=== PATIENT | male | born 1960 | race Caucasian/White ===

== ENCOUNTER 2023-06-15 20:15 | Emergency (ER) | payer SELFPAY ==
[~2023-06-15] VITALS: Ht 190.5 cm; Wt 81.4 kg
[2023-06-15 22:21] VITALS: BP 146/85; PULSE 87; RESP 18; O2SAT 97
[2023-06-15] MEDS: CefTRIAXone 1000mg IM Kit (w/lidocaine diluent) IM ONE (22:33)
== END 2023-06-15 22:39 | disposition home or self-care (01) ==
LOC: ER 20:16
DX: R06.02 Shortness of breath (principal); J18.9 Pneumonia, unspecified organism
CPT/HCPCS: 96372; 99283; J0696

== ENCOUNTER 2024-04-10 10:58 | Inpatient (IN) | payer MEDICARE ==
[2024-04-10] VITALS (22 sets, daily range): BP systolic 79–130; BP diastolic 43–76; PULSE 58–122; RESP 16–24; O2SAT 90–99
[~2024-04-10] VITALS: Ht 182.9 cm; Wt 112.3 kg
[2024-04-10] MEDS ORDERED: LORazepam 2 mg/ml vial ONE (11:02)
[2024-04-10] MEDS ORDERED: levetiracetam inj 2,000 MG in normal saline 100ml IV soln 100 ML IV ONE (11:05)
[2024-04-10] MEDS: LORazepam 2 mg/ml vial IV ONE ×2 (11:15)
[2024-04-10] MEDS: levetiracetam-NACL1000mg/100ml 100 ML IV ONE ×3 (11:24→11:40)
[2024-04-10] MEDS: normal saline 1000ml 1,000 ML IV ONE ×2 (11:26)
[2024-04-10] MEDS: MIDAZolam 5mg/ml 2ml vial IV ONE ×2 (11:30→12:18)
[2024-04-10 11:37] LABS: BASOPHILS # (AUTO) 0.1 X10'3 (0-0.2); BASOPHILS % (AUTO) 0.6 % (0-1); EOSINOPHILS # (AUTO) 0.1 X10'3 (0-0.9); EOSINOPHILS % (AUTO) 0.9 % (0-6); HEMATOCRIT 47.4 % (42.0-52.0); HEMOGLOBIN 15.9 g/dl (14.0-17.9); LYMPHOCYTES # (AUTO) 2.4 X10'3 (1.1-4.8); LYMPHOCYTES % (AUTO) 26.3 % (21-51); MEAN CORPUSCULAR HGB CONC 33.5 g/dL (33.0-36.5); MEAN CORPUSCULAR VOLUME 101.6 FL (78-98); MEAN PLATELET VOLUME 7.2 FL (7.4-10.4); MONOCYTES # (AUTO) 0.6 X10'3 (0-0.9); MONOCYTES % (AUTO) 6.7 % (2-12); NEUTROPHILS # (AUTO) 6.1 X10'3 (1.8-7.7); NEUTROPHILS % (AUTO) 65.5 % (42-75); PLATELET COUNT 359 X10'3 (140-440); RED BLOOD COUNT 4.67 X10'6 (4.70-6.10); RED CELL DISTRIBUTION WIDTH 14.1 % (11.5-14.5); WHITE BLOOD COUNT 9.3 X10'3 (4.5-11.0)
[2024-04-10] MEDS: midazolam 100mg in NS 100ml 100 ML IV PRN (11:37)
[2024-04-10 11:49] LABS: ABG BASE EXCESS -7.4 mmol/L (-2.0-3.0); ABG HCO3 19.3 mmol/L (21.0-28.0); ABG OXYGEN SATURATION 97.2 % (94.0-98.0); ABG PCO2 (T) 45.9 mmHg (35.0-48.0); ABG PH (T) 7.249 (7.350-7.450); ABG PO2 (T) 113.3 mmHg (83.0-108.0); ALLEN'S TEST POSITIVE; FCOHb 1.1 % (0.5-1.5); FHHb 2.8 % (0.0-5.0); FMetHb 0.2 % (0.0-1.5); FO2Hb 95.9 % (94.0-98.0); MODE VENT - PRVC; PATIENT TEMPERATURE 38.1; PEEP 5 cm H2O; RESPIRATORY RATE 16 b/min; TIDAL VOLUME 500 mL; TOTAL HEMOGLOBIN 15.4 G/dl (13.5-17.5)
[2024-04-10 11:52] LABS: ALANINE AMINOTRANSFERASE 22 U/L (12-78); ALBUMIN 3.8 G/DL (3.4-5.0); ALBUMIN/GLOBULIN RATIO 0.8 (1.1-1.5); ALKALINE PHOSPHATASE 66 IU/L (46-116); ANION GAP 19 (8-16); ASPARTATE AMINO TRANSFERASE 24 U/L (10-37); BILIRUBIN,TOTAL 0.4 MG/DL (0.1-1.0); BLOOD UREA NITROGEN 17 MG/DL (7-18); BUN/CREATININE RATIO 12.8 (10.0-20.0); CALCIUM 8.2 MG/DL (8.5-10.1); CHLORIDE 102 MMOL/L (99-107); CREATININE 1.33 MG/DL (0.60-1.10); GLUCOSE 155 MG/DL (70-104); POTASSIUM 4.1 MMOL/L (3.5-5.1); SODIUM 139 MMOL/L (135-145); TOTAL CARBON DIOXIDE 17.6 MMOL/L (24-32); TOTAL PROTEIN 8.7 G/DL (6.4-8.2); eCRCL 60 ML/MIN; eGFR 54 ML/MIN
[2024-04-10 12:01] LABS: ETHANOL < 10 MG/DL (<10)
[2024-04-10 12:10] LABS: BILIRUBIN,URINE NEGATIVE (Neg); CLARITY,URINE CLEAR (Clear); COLOR,URINE YELLOW (Yellow); GLUCOSE, URINE NEGATIVE (Neg); KETONES,URINE NEGATIVE (Neg); LEUKOCYTE ESTERASE ,URINE NEGATIVE (Neg); NITRITES, URINE NEGATIVE (Neg); OCCULT BLOOD,URINE SMALL (Neg); PROTEIN,URINE 100 mg/dl (Neg); UROBILINOGEN,URINE 0.2 E.U/dL (0.2-1.0)
[2024-04-10] MEDS ORDERED: morphine 4 MG/ML inj SYRINge IV PRN (12:10)
[2024-04-10] MEDS ORDERED: ondansetron/PF 4mg/2ml inj IV PRN (12:10)
[2024-04-10] MEDS ORDERED: acetaminophen 325mg tablet PO PRN ×2 (12:10)
[2024-04-10] MEDS ORDERED: morphine 2 MG/ML inj. syringe IV PRN (12:10)
[2024-04-10] MEDS ORDERED: magnesium hydroxide 30ml (MOM) UD suspension PO PRN (12:10)
[2024-04-10 12:15] LABS: UA COLLECTION TYPE FOLEY CATH
[2024-04-10 12:22] LABS: BACTERIA,URINE FEW /HPF (Neg); SQUAMOUS EPITHELIAL CELL,UR FEW /LPF (FEW); WBC,URINE 0-4 /HPF (0-4)
[2024-04-10 12:23] LABS: FINE GRANULAR CAST 0-3 /LPF (NEGATIVE)
[2024-04-10] MEDS: CefTRIAXone/D5W-Rocephin 1gm 50 ML IV ONE (12:23)
[2024-04-10 12:25] LABS: URINE AMPHETAMINE SCREEN NEGATIVE (Neg); URINE BARBITUATE SCREEN NEGATIVE (Neg); URINE BENZODIAZEPINES SCREEN NEGATIVE (Neg); URINE CANNABINOID SCREEN NEGATIVE (Neg); URINE COCAINE SCREEN NEGATIVE (Neg); URINE METHADONE SCREEN NEGATIVE (Neg); URINE OPIATE SCREEN NEGATIVE (Neg); URINE PHENCYCLIDINE SCREEN NEGATIVE (Neg)
[2024-04-10 12:28] LABS: APTT 25 SECONDS (22-32); INR 1.1 INR; PROTHROMBIN TIME 11.2 SECONDS (9.0-12.0)
[2024-04-10] MEDS: MIDAZolam 5mg/ml 2ml vial ONE (12:28)
[2024-04-10] MEDS: fentaNYL/PF 50MCG/1 ML 2ML syringe IV ONE (12:30)
[2024-04-10 12:39] LABS: MAGNESIUM 1.8 MG/DL (1.5-2.4); PHOSPHORUS 3.3 MG/DL (2.3-4.5)
[2024-04-10] MEDS: ringers solution, lacted 1,000 ML IV ONE ×2 (12:52→14:31)
[2024-04-10] MEDS: FENTANYL-0.9 % NACL/PF 100 ML IV SCH (14:00)
[2024-04-10] MEDS: albuterol 2.5 MG/3 ML nebule NEB SCH (16:00)
[2024-04-10] MEDS: rocuronium 10mg/ml inj IV ONE (16:19)
[2024-04-10] MEDS ORDERED: NORepinephrine 8mg/ 250ml NS 250 ML IV PRN (16:30)
[2024-04-10] MEDS: NORepinephrine 8mg/ 250ml NS 250 ML IV ONE (16:32)
[2024-04-10] MEDS: NORepinephrine 8mg/ 250ml NS 250 ML IV SCH (17:22)
[2024-04-10] MEDS: heparin, porcine 5000 units/ml vial SQ SCH (18:17)
[2024-04-10] MEDS: acetaminophen 1,000mg/100ml IV 100 ML IV ONE (18:37)
[2024-04-10] MEDS: normal saline 1000ml 1,000 ML IV SCH (18:37)
[2024-04-10 19:14] LABS: FREE T4 (FREE THYROXINE) 0.56 NG/DL (0.73-1.40)
[2024-04-10 19:17] LABS: THYROID STIMULATING HORMONE 51.6 ulU/ml (0.34-4.50)
[2024-04-10] MEDS ORDERED: levetiracetam inj 1,000 MG in normal saline 100ml IV soln 100 ML IV SCH (20:00)
[2024-04-10] MEDS: levetiracetamNACL 1500mg/100mL 100 ML IV SCH (21:13)
[2024-04-10] MEDS: levetiracetam-NACL1000mg/100ml 100 ML IV SCH (21:14)
[2024-04-10] MEDS: VANCOMYCIN/H2O 1.75g/350mL PB 350 ML IV ONE (23:00)
[2024-04-11] VITALS (45 sets, daily range): BP systolic 85–132; BP diastolic 55–84; PULSE 49–107; RESP 17–23; O2SAT 91–100
[2024-04-11] MEDS: metroNIDAZOLE-Flagyl 500mg/NS 100 ML IV SCH (01:23)
[2024-04-11 02:52] LABS: BASOPHILS # (AUTO) 0.1 X10'3 (0-0.2); BASOPHILS % (AUTO) 0.5 % (0-1); EOSINOPHILS # (AUTO) 0.1 X10'3 (0-0.9); EOSINOPHILS % (AUTO) 0.5 % (0-6); HEMATOCRIT 36.6 % (42.0-52.0); HEMOGLOBIN 12.5 g/dl (14.0-17.9); LYMPHOCYTES % (AUTO) 6.8 % (21-51); MEAN CORPUSCULAR HEMOGLOBIN 34.4 PG (27.0-31.0); MEAN CORPUSCULAR HGB CONC 34.2 g/dL (33.0-36.5); MEAN CORPUSCULAR VOLUME 100.4 FL (78-98); MEAN PLATELET VOLUME 7.1 FL (7.4-10.4); MONOCYTES # (AUTO) 0.5 X10'3 (0-0.9); MONOCYTES % (AUTO) 3.6 % (2-12); NEUTROPHILS # (AUTO) 12.9 X10'3 (1.8-7.7); NEUTROPHILS % (AUTO) 88.6 % (42-75); PLATELET COUNT 241 X10'3 (140-440); RED BLOOD COUNT 3.65 X10'6 (4.70-6.10); RED CELL DISTRIBUTION WIDTH 13.6 % (11.5-14.5); WHITE BLOOD COUNT 14.6 X10'3 (4.5-11.0)
[2024-04-11 03:07] LABS: ALANINE AMINOTRANSFERASE 16 U/L (12-78); ALBUMIN 2.5 G/DL (3.4-5.0); ALBUMIN/GLOBULIN RATIO 0.7 (1.1-1.5); ALKALINE PHOSPHATASE 52 IU/L (46-116); ANION GAP 8 (8-16); ASPARTATE AMINO TRANSFERASE 19 U/L (10-37); BLOOD UREA NITROGEN 12 MG/DL (7-18); BUN/CREATININE RATIO 12.1 (10.0-20.0); CALCIUM 7.3 MG/DL (8.5-10.1); CHLORIDE 107 MMOL/L (99-107); CREATININE 0.99 MG/DL (0.60-1.10); GLUCOSE 116 MG/DL (70-104); POTASSIUM 3.2 MMOL/L (3.5-5.1); SODIUM 140 MMOL/L (135-145); TOTAL CARBON DIOXIDE 25.4 MMOL/L (24-32); TOTAL PROTEIN 5.9 G/DL (6.4-8.2); eCRCL 81 ML/MIN; eGFR 76 ML/MIN
[2024-04-11 03:41] LABS: ABG BASE EXCESS -1.2 mmol/L (-2.0-3.0); ABG HCO3 24.4 mmol/L (21.0-28.0); ABG OXYGEN SATURATION 94.4 % (94.0-98.0); ABG PCO2 (T) 45.4 mmHg (35.0-48.0); ABG PH (T) 7.351 (7.350-7.450); ABG PO2 (T) 73.4 mmHg (83.0-108.0); ALLEN'S TEST POSITIVE; FCOHb 1.1 % (0.5-1.5); FHHb 5.5 % (0.0-5.0); FMetHb 0.3 % (0.0-1.5); FO2Hb 93.1 % (94.0-98.0); MODE VENT - AC; PATIENT TEMPERATURE 37.8; PEEP 5 cm H2O; RESPIRATORY RATE 18 b/min; TIDAL VOLUME 500 mL; TOTAL HEMOGLOBIN 13.9 G/dl (13.5-17.5)
[2024-04-11] MEDS: pantoprazole 40 MG vial IV SCH (08:30)
[2024-04-11] MEDS: VANCOMYCIN 1GM 200ML H20 (PEG) 200 ML IV SCH (09:21)
[2024-04-11] MEDS: CefTRIAXone 2gm/D5W 50ml BAG 50 ML IV SCH (10:53)
[2024-04-11] MEDS ORDERED: magnesium hydroxide 30ml (MOM) UD suspension OGT PRN (11:34)
[2024-04-11] MEDS ORDERED: acetaminophen 325mg tablet OGT PRN ×2 (11:34)
[2024-04-11] MEDS ORDERED: POTASSIUM CHLORIDE 20 MEQ/15 ML oral solution OGT PRN ×2 (11:35)
[2024-04-11] MEDS ORDERED: UNABLE TO OBTAIN (11:38)
[2024-04-11] MEDS: potassium Cl 40MEQ/1/2NS 520ml 520 ML IV PRN (12:56)
[2024-04-12] VITALS (46 sets, daily range): BP systolic 82–160; BP diastolic 49–88; PULSE 49–113; RESP 15–25; O2SAT 95–99
[2024-04-12 02:24] LABS: BASOPHILS % (AUTO) 0.5 % (0-1); EOSINOPHILS # (AUTO) 0.2 X10'3 (0-0.9); EOSINOPHILS % (AUTO) 1.9 % (0-6); HEMATOCRIT 37.2 % (42.0-52.0); HEMOGLOBIN 12.9 g/dl (14.0-17.9); LYMPHOCYTES # (AUTO) 0.8 X10'3 (1.1-4.8); LYMPHOCYTES % (AUTO) 7.7 % (21-51); MEAN CORPUSCULAR HEMOGLOBIN 34.7 PG (27.0-31.0); MEAN CORPUSCULAR HGB CONC 34.6 g/dL (33.0-36.5); MEAN CORPUSCULAR VOLUME 100.1 FL (78-98); MEAN PLATELET VOLUME 6.7 FL (7.4-10.4); MONOCYTES # (AUTO) 0.8 X10'3 (0-0.9); MONOCYTES % (AUTO) 8.3 % (2-12); NEUTROPHILS # (AUTO) 8.3 X10'3 (1.8-7.7); NEUTROPHILS % (AUTO) 81.6 % (42-75); PLATELET COUNT 207 X10'3 (140-440); RED BLOOD COUNT 3.71 X10'6 (4.70-6.10); RED CELL DISTRIBUTION WIDTH 13.6 % (11.5-14.5); WHITE BLOOD COUNT 10.1 X10'3 (4.5-11.0)
[2024-04-12 02:43] LABS: ALANINE AMINOTRANSFERASE 17 U/L (12-78); ALBUMIN 2.5 G/DL (3.4-5.0); ALBUMIN/GLOBULIN RATIO 0.7 (1.1-1.5); ALKALINE PHOSPHATASE 52 IU/L (46-116); ANION GAP 3 (8-16); ASPARTATE AMINO TRANSFERASE 39 U/L (10-37); BILIRUBIN,TOTAL 0.5 MG/DL (0.1-1.0); BLOOD UREA NITROGEN 7 MG/DL (7-18); BUN/CREATININE RATIO 7.4 (10.0-20.0); CALCIUM 7.2 MG/DL (8.5-10.1); CHLORIDE 109 MMOL/L (99-107); CREATININE 0.94 MG/DL (0.60-1.10); GLUCOSE 104 MG/DL (70-104); MAGNESIUM 1.7 MG/DL (1.5-2.4); POTASSIUM 3.6 MMOL/L (3.5-5.1); PREALBUMIN 15.8 MG/DL (19-36); SODIUM 139 MMOL/L (135-145); TOTAL CARBON DIOXIDE 27.1 MMOL/L (24-32); eCRCL 85 ML/MIN; eGFR 80 ML/MIN
[2024-04-12 03:42] LABS: ABG BASE EXCESS -1.4 mmol/L (-2.0-3.0); ABG OXYGEN SATURATION 95.9 % (94.0-98.0); ABG PH (T) 7.393 (7.350-7.450); ABG PO2 (T) 79.7 mmHg (83.0-108.0); ALLEN'S TEST Modified; FCOHb 0.7 % (0.5-1.5); FHHb 4.1 % (0.0-5.0); FMetHb 0.3 % (0.0-1.5); FO2Hb 94.9 % (94.0-98.0); MODE ac/prvc; PATIENT TEMPERATURE 37.7; PEEP 5 cm H2O; RESPIRATORY RATE 18 b/min; TIDAL VOLUME 500 mL; TOTAL HEMOGLOBIN 13.5 G/dl (13.5-17.5)
[2024-04-12 04:01] LABS: PHOSPHORUS 2.2 MG/DL (2.3-4.5)
[2024-04-12] MEDS: K and/or MAG REPLACEMENT MC SCH (08:00)
[2024-04-12] MEDS: risperiDONE 2mg tablet PO ONE (08:47)
[2024-04-12] MEDS: VANCOMYCIN LEVEL IV ONE (08:48)
[2024-04-12] MEDS: dexmedetomidin/NS 400mcg/100ml 100 ML IV PRN (08:48)
[2024-04-12] MEDS ORDERED: mineral oil/petrolatum ophthal oint EACHEYE PRN (09:10)
[2024-04-12] MEDS ORDERED: VANCOMYCIN/WATER FOR INJ (PEG) 1.5GM/300 ML IVPB IV SCH (10:00)
[2024-04-12] MEDS: VANCOMYCIN 1,500MG in normal saline IV soln 300 ML IV SCH (10:06)
[2024-04-12] MEDS: risperiDONE 2mg tablet OGT SCH (21:19)
[2024-04-13] VITALS (42 sets, daily range): BP systolic 82–138; BP diastolic 46–73; PULSE 51–124; RESP 13–28; O2SAT 92–99
[2024-04-13 02:27] LABS: BASOPHILS % (AUTO) 0.5 % (0-1); EOSINOPHILS # (AUTO) 0.3 X10'3 (0-0.9); EOSINOPHILS % (AUTO) 3.1 % (0-6); HEMATOCRIT 36.2 % (42.0-52.0); HEMOGLOBIN 12.6 g/dl (14.0-17.9); LYMPHOCYTES # (AUTO) 0.6 X10'3 (1.1-4.8); LYMPHOCYTES % (AUTO) 7.1 % (21-51); MEAN CORPUSCULAR HEMOGLOBIN 34.8 PG (27.0-31.0); MEAN CORPUSCULAR HGB CONC 34.8 g/dL (33.0-36.5); MEAN CORPUSCULAR VOLUME 99.9 FL (78-98); MEAN PLATELET VOLUME 6.9 FL (7.4-10.4); MONOCYTES # (AUTO) 0.7 X10'3 (0-0.9); MONOCYTES % (AUTO) 7.8 % (2-12); NEUTROPHILS # (AUTO) 6.8 X10'3 (1.8-7.7); NEUTROPHILS % (AUTO) 81.5 % (42-75); PLATELET COUNT 189 X10'3 (140-440); RED BLOOD COUNT 3.63 X10'6 (4.70-6.10); RED CELL DISTRIBUTION WIDTH 13.4 % (11.5-14.5); WHITE BLOOD COUNT 8.3 X10'3 (4.5-11.0)
[2024-04-13 02:37] LABS: ALANINE AMINOTRANSFERASE 23 U/L (12-78); ALBUMIN 2.4 G/DL (3.4-5.0); ALBUMIN/GLOBULIN RATIO 0.6 (1.1-1.5); ALKALINE PHOSPHATASE 51 IU/L (46-116); ANION GAP 5 (8-16); ASPARTATE AMINO TRANSFERASE 55 U/L (10-37); BILIRUBIN,TOTAL 0.7 MG/DL (0.1-1.0); BLOOD UREA NITROGEN 6 MG/DL (7-18); BUN/CREATININE RATIO 7.4 (10.0-20.0); CALCIUM 7.9 MG/DL (8.5-10.1); CHLORIDE 108 MMOL/L (99-107); CREATININE 0.81 MG/DL (0.60-1.10); GLUCOSE 151 MG/DL (70-104); MAGNESIUM 1.8 MG/DL (1.5-2.4); PHOSPHORUS 2.3 MG/DL (2.3-4.5); POTASSIUM 3.3 MMOL/L (3.5-5.1); SODIUM 139 MMOL/L (135-145); TOTAL CARBON DIOXIDE 26.3 MMOL/L (24-32); TOTAL PROTEIN 6.2 G/DL (6.4-8.2); eCRCL 98 ML/MIN; eGFR > 90 ML/MIN
[2024-04-13 03:44] LABS: ABG BASE EXCESS -2.9 mmol/L (-2.0-3.0); ABG HCO3 20.5 mmol/L (21.0-28.0); ABG PCO2 (T) 31.3 mmHg (35.0-48.0); ABG PH (T) 7.432 (7.350-7.450); ABG PO2 (T) 83.7 mmHg (83.0-108.0); ALLEN'S TEST Modified; FCOHb 0.7 % (0.5-1.5); FMetHb 0.3 % (0.0-1.5); MODE VENT - CPAP; PATIENT TEMPERATURE 36.7; PEEP 5 cm H2O; TOTAL HEMOGLOBIN 13.8 G/dl (13.5-17.5)
[2024-04-13] MEDS: potassium Cl 40MEQ/270ML bag 270 ML IV PRN (04:16)
[2024-04-13] MEDS: risperiDONE 0.5mg tablet OGT SCH (08:23)
[2024-04-13] MEDS ORDERED: NO HOME MEDS (16:24)
[2024-04-13 18:05] LABS: BILIRUBIN,URINE NEGATIVE (Neg); CLARITY,URINE CLEAR (Clear); COLOR,URINE YELLOW (Yellow); GLUCOSE, URINE NEGATIVE (Neg); KETONES,URINE NEGATIVE (Neg); LEUKOCYTE ESTERASE ,URINE NEGATIVE (Neg); NITRITES, URINE NEGATIVE (Neg); OCCULT BLOOD,URINE SMALL (Neg); PH,URINE 6.5 (4.8-8.0); PROTEIN,URINE NEGATIVE (Neg); UROBILINOGEN,URINE 0.2 E.U/dL (0.2-1.0)
[2024-04-13 18:08] LABS: UA COLLECTION TYPE NON-SPECIFIED
[2024-04-13 18:09] LABS: BACTERIA,URINE NONE SEEN /HPF (Neg); MUCUS STRANDS NONE SEEN /LPF (Neg); SQUAMOUS EPITHELIAL CELL,UR NONE SEEN /LPF (FEW); WBC,URINE NONE SEEN /HPF (0-4)
[2024-04-13] MEDS: VANCOMYCIN LEVEL IV ONE (21:30)
[2024-04-14] VITALS (21 sets, daily range): BP systolic 104–144; BP diastolic 63–90; PULSE 97–124; RESP 13–26; TEMP 98.1–98.7; O2SAT 92–98
[2024-04-14 03:46] LABS: ALANINE AMINOTRANSFERASE 65 U/L (12-78); ALBUMIN 3.1 G/DL (3.4-5.0); ALBUMIN/GLOBULIN RATIO 0.9 (1.1-1.5); ALKALINE PHOSPHATASE 100 IU/L (46-116); ANION GAP 8 (8-16); ASPARTATE AMINO TRANSFERASE 64 U/L (10-37); BILIRUBIN,TOTAL 1.1 MG/DL (0.1-1.0); BLOOD UREA NITROGEN 14 MG/DL (7-18); BUN/CREATININE RATIO 17.3 (10.0-20.0); CALCIUM 8.3 MG/DL (8.5-10.1); CHLORIDE 97 MMOL/L (99-107); CREATININE 0.81 MG/DL (0.60-1.10); GLUCOSE 81 MG/DL (70-104); MAGNESIUM 1.8 MG/DL (1.5-2.4); SODIUM 130 MMOL/L (135-145); TOTAL PROTEIN 6.6 G/DL (6.4-8.2); eCRCL 98 ML/MIN; eGFR > 90 ML/MIN
[2024-04-14 08:16] LABS: BASOPHILS # (AUTO) 0.1 X10'3 (0-0.2); BASOPHILS % (AUTO) 0.8 % (0-1); EOSINOPHILS # (AUTO) 0.2 X10'3 (0-0.9); HEMOGLOBIN 12.8 g/dl (14.0-17.9); LYMPHOCYTES # (AUTO) 0.7 X10'3 (1.1-4.8); LYMPHOCYTES % (AUTO) 9.1 % (21-51); MEAN CORPUSCULAR HEMOGLOBIN 34.5 PG (27.0-31.0); MEAN CORPUSCULAR HGB CONC 34.7 g/dL (33.0-36.5); MEAN CORPUSCULAR VOLUME 99.7 FL (78-98); MEAN PLATELET VOLUME 6.8 FL (7.4-10.4); MONOCYTES # (AUTO) 0.8 X10'3 (0-0.9); MONOCYTES % (AUTO) 10.5 % (2-12); NEUTROPHILS # (AUTO) 5.9 X10'3 (1.8-7.7); NEUTROPHILS % (AUTO) 77.6 % (42-75); PLATELET COUNT 213 X10'3 (140-440); RED BLOOD COUNT 3.71 X10'6 (4.70-6.10); RED CELL DISTRIBUTION WIDTH 13.5 % (11.5-14.5); WHITE BLOOD COUNT 7.6 X10'3 (4.5-11.0)
[2024-04-14] MEDS ORDERED: albuterol 2.5 MG/3 ML nebule NEB PRN (09:25)
[2024-04-14 11:52] LABS: VANCOMYCIN,TROUGH 0.1 ug/mL (10.0-20.0)
[2024-04-14] MEDS ORDERED: magnesium hydroxide 30ml (MOM) UD suspension PO PRN (13:26)
[2024-04-14] MEDS ORDERED: acetaminophen 325mg tablet PO PRN (13:26)
[2024-04-14] MEDS ORDERED: POTASSIUM CHLORIDE 20 MEQ/15 ML oral solution PO PRN ×2 (13:27)
[2024-04-14] MEDS: risperiDONE 0.5mg tablet PO SCH (20:55)
[2024-04-14] MEDS: VANCOMYCIN 1GM 200ML H20 (PEG) 200 ML IV SCH (22:04)
[2024-04-15] MEDS: acetaminophen 325mg tablet PO PRN (05:49)
[2024-04-15 06:00] VITALS: BP 111/65; PULSE 90; RESP 18; TEMP 98; O2SAT 93
[2024-04-15 06:09] LABS: BASOPHILS # (AUTO) 0.1 X10'3 (0-0.2); BASOPHILS % (AUTO) 0.8 % (0-1); EOSINOPHILS # (AUTO) 0.3 X10'3 (0-0.9); EOSINOPHILS % (AUTO) 3.9 % (0-6); HEMATOCRIT 36.9 % (42.0-52.0); HEMOGLOBIN 12.5 g/dl (14.0-17.9); LYMPHOCYTES # (AUTO) 0.7 X10'3 (1.1-4.8); LYMPHOCYTES % (AUTO) 8.7 % (21-51); MEAN CORPUSCULAR VOLUME 100.1 FL (78-98); MEAN PLATELET VOLUME 7.1 FL (7.4-10.4); MONOCYTES # (AUTO) 0.9 X10'3 (0-0.9); MONOCYTES % (AUTO) 12.6 % (2-12); NEUTROPHILS # (AUTO) 5.6 X10'3 (1.8-7.7); PLATELET COUNT 229 X10'3 (140-440); RED BLOOD COUNT 3.69 X10'6 (4.70-6.10); RED CELL DISTRIBUTION WIDTH 13.4 % (11.5-14.5); WHITE BLOOD COUNT 7.5 X10'3 (4.5-11.0)
[2024-04-15 06:33] LABS: ALANINE AMINOTRANSFERASE 33 U/L (12-78); ALBUMIN 2.6 G/DL (3.4-5.0); ALBUMIN/GLOBULIN RATIO 0.6 (1.1-1.5); ALKALINE PHOSPHATASE 49 IU/L (46-116); ANION GAP 7 (8-16); ASPARTATE AMINO TRANSFERASE 90 U/L (10-37); BILIRUBIN,TOTAL 0.6 MG/DL (0.1-1.0); BLOOD UREA NITROGEN 11 MG/DL (7-18); BUN/CREATININE RATIO 13.9 (10.0-20.0); CALCIUM 7.7 MG/DL (8.5-10.1); CHLORIDE 107 MMOL/L (99-107); CREATININE 0.79 MG/DL (0.60-1.10); GLUCOSE 101 MG/DL (70-104); POTASSIUM 3.8 MMOL/L (3.5-5.1); TOTAL CARBON DIOXIDE 28.5 MMOL/L (24-32); TOTAL PROTEIN 6.7 G/DL (6.4-8.2); eCRCL 101 ML/MIN; eGFR > 90 ML/MIN
[2024-04-15 06:50] LABS: SODIUM 142 MMOL/L (135-145)
[2024-04-15] MEDS: levoTHYROXINE 100mcg tablet PO SCH (08:05)
[2024-04-15 10:00] VITALS: BP 105/73; PULSE 87; RESP 16; TEMP 98; O2SAT 95
[2024-04-15 18:00] VITALS: BP 117/70; PULSE 91; RESP 16; TEMP 98; O2SAT 94
[2024-04-15 19:35] VITALS: PULSE 95; RESP 16; O2SAT 92
[2024-04-15 20:10] VITALS: RESP 18
[2024-04-15] MEDS: VANCOMYCIN LEVEL IV ONE (20:24)
[2024-04-15 22:00] VITALS: BP 112/69; PULSE 79; RESP 22; TEMP 97.4; O2SAT 96
[2024-04-16 05:56] LABS: BASOPHILS # (AUTO) 0.1 X10'3 (0-0.2); BASOPHILS % (AUTO) 1.1 % (0-1); EOSINOPHILS # (AUTO) 0.4 X10'3 (0-0.9); HEMATOCRIT 38.5 % (42.0-52.0); HEMOGLOBIN 13.1 g/dl (14.0-17.9); LYMPHOCYTES # (AUTO) 1.1 X10'3 (1.1-4.8); LYMPHOCYTES % (AUTO) 15.1 % (21-51); MEAN CORPUSCULAR HEMOGLOBIN 33.8 PG (27.0-31.0); MEAN CORPUSCULAR HGB CONC 33.9 g/dL (33.0-36.5); MEAN CORPUSCULAR VOLUME 99.7 FL (78-98); MEAN PLATELET VOLUME 6.4 FL (7.4-10.4); MONOCYTES # (AUTO) 0.8 X10'3 (0-0.9); MONOCYTES % (AUTO) 11.3 % (2-12); NEUTROPHILS # (AUTO) 4.7 X10'3 (1.8-7.7); NEUTROPHILS % (AUTO) 66.5 % (42-75); PLATELET COUNT 234 X10'3 (140-440); RED BLOOD COUNT 3.87 X10'6 (4.70-6.10); RED CELL DISTRIBUTION WIDTH 13.9 % (11.5-14.5); WHITE BLOOD COUNT 7.1 X10'3 (4.5-11.0)
[2024-04-16 06:00] VITALS: BP 102/65; PULSE 75; RESP 20; TEMP 96.7; TEMP 97.2; O2SAT 97
[2024-04-16 06:17] LABS: ALANINE AMINOTRANSFERASE 42 U/L (12-78); ALBUMIN 2.7 G/DL (3.4-5.0); ALBUMIN/GLOBULIN RATIO 0.6 (1.1-1.5); ALKALINE PHOSPHATASE 56 IU/L (46-116); ANION GAP 4 (8-16); ASPARTATE AMINO TRANSFERASE 99 U/L (10-37); BILIRUBIN,TOTAL 0.3 MG/DL (0.1-1.0); BLOOD UREA NITROGEN 14 MG/DL (7-18); BUN/CREATININE RATIO 16.9 (10.0-20.0); CALCIUM 8.4 MG/DL (8.5-10.1); CHLORIDE 107 MMOL/L (99-107); CREATININE 0.83 MG/DL (0.60-1.10); GLUCOSE 93 MG/DL (70-104); SODIUM 140 MMOL/L (135-145); TOTAL CARBON DIOXIDE 29.3 MMOL/L (24-32); TOTAL PROTEIN 7.1 G/DL (6.4-8.2); eCRCL 96 ML/MIN; eGFR > 90 ML/MIN
[2024-04-16 08:00] VITALS: RESP 17; O2SAT 95
[2024-04-16 10:00] VITALS: BP 112/85; PULSE 111; RESP 16; TEMP 98.6; O2SAT 97
[2024-04-16] MEDS ORDERED: KEP500T PO (10:25)
[2024-04-16 11:00] VITALS: BP 112/85; PULSE 111; RESP 14; TEMP 98.6; O2SAT 97
[2024-04-16] MEDS: pneumococcal 23-VAL P-sac vacc 25 mcg/0.5ml vial IMVAC ONE (11:10)
[2024-04-16] MEDS ORDERED: VANCOMYCIN/WATER FOR INJ (PEG) 1.25GM/250 ML IVPB IV SCH (20:00)
[2024-04-17] MEDS ORDERED: VANCOMYCIN LEVEL IV ONE (19:30)
== END 2024-04-16 14:12 | disposition home health service (06) | DRG 208 ==
LOC: ER 10:58 → ED HOLD 12:13 → CICU 2S 13:30 → ORTHO 4S 04-14 13:30
PROVIDERS: ADMIT Internal Medicine Critical Care Medicine; ATTEND Internal Medicine Critical Care Medicine
PROC: 5A1945Z Respiratory Ventilation, 24-96 Consecutive Hours (ICD-10-PCS; principal; 2024-04-10)
PROC: 0BH18EZ Insertion of Endotracheal Airway into Trachea, Via Natural or Artificial Opening Endoscopic (ICD-10-PCS; 2024-04-10)
PROC: 02HV33Z Insertion of Infusion Device into Superior Vena Cava, Percutaneous Approach (ICD-10-PCS; 2024-04-10)
PROC: B548ZZA Ultrasonography of Superior Vena Cava, Guidance (ICD-10-PCS; 2024-04-10)
PROC: 4A00X4Z Measurement of Central Nervous Electrical Activity, External Approach (ICD-10-PCS; 2024-04-11)
PROC: 4A00X4Z Measurement of Central Nervous Electrical Activity, External Approach (ICD-10-PCS; 2024-04-12)
DX: J96.01 Acute respiratory failure with hypoxia (principal); J69.0 Pneumonitis due to inhalation of food and vomit; N17.0 Acute kidney failure with tubular necrosis; E87.1 Hypo-osmolality and hyponatremia; G40.901 Epilepsy, unspecified, not intractable, with status epilepticus; Z20.822 Contact with and (suspected) exposure to COVID-19; F19.11 Other psychoactive substance abuse, in remission; I95.9 Hypotension, unspecified
CPT/HCPCS: 36415; 36600; 70450; 71045; 71250; 74176; 80053; 80202; 80305; 80320; 81001; 82140; 82803; 82948; 83605; 83735; 84100; 84132; 84134; 84145; 84439; 84443; 84484; 85018; 85025; 85610; 85730; 87040; 87070; 87081; 87502; 87503; 87811; 90732; 92508; 92616; 93005; 93306; 94002; 94003; 94640; 94760; 94799; 95720; 96365; 96367; 97110; 97116; 97162; 99285; A4615; A4620; A6213; A6250; A6258; A6402; A6590; A7015; A9900; C1751; C1758; G0378; J0131; J0696; J1644; J1953; J2060; J2250; J2470; J2560; J3010; J3370; J3372; J3480; J3490; J7030; J7040; J7050; J7120